=== PATIENT | male | born 1965 | race Caucasian/White ===

== ENCOUNTER 2017-06-29 05:27 | Inpatient (IN) | payer OTHER ==
[2017-06-29] MEDS ORDERED: Sodium Chloride 0.9% 1,000 ML IV ONE (06:07)
[2017-06-29] MEDS ORDERED: HYDROmorphone 1 mg/mL 1mL Syr IVP STA (06:08)
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
[2017-06-29] MEDS ORDERED: HYDROmorphone 1 mg/mL 1mL Syr ONE (06:23)
[2017-06-29 06:30] LABS: % BASOPHILS 0.5 % (0.0-2.0); % EOSINOPHILS 4.4 % (0.0-5.0); % LYMPHOCYTES 40.2 % (20.0-50.0); % MONOCYTES 10.6 % (2.0-10.0); % NEUTROPHILS 44.3 % (40.0-80.0); EOSINOPHILE ABSOLUTE 0.2 Th/cmm (0.1-0.4); HEMOGLOBIN 15.4 gm/dL (12-16); LYMPHOCYTE ABSOLUTE 1.6 Th/cmm (1.5-3.0); MEAN CELL VOLUME 81.4 fl (80-99); MEAN CORPUSCULAR HEMOGLOBIN 26.6 pg (26.0-30.0); MEAN CORPUSCULAR HGB CONC 32.7 pg (28.0-36.0); MEAN PLATELET VOLUME 7.2 fl; MONOCYTE ABSOLUTE 0.4 Th/cmm (0.3-1.0); NEUTROPHILE ABSOLUTE 1.9 Th/cmm (1.8-8.0); RED CELL DISTRIBUTION WIDTH 14.3 % (11.5-20.0)
[2017-06-29 06:31] LABS: HEMATOCRIT 47.2 % (41.0-60); PLATELET COUNT 239 Th/cmm (150-400); WHITE BLOOD COUNT 4.1 Th/cmm (4.8-10.8)
[2017-06-29 06:57] LABS: INR 0.91 (0.5-1.4); PROTHROMBIN TIME (TEST) 9.5 SECONDS (9.5-11.5)
[2017-06-29 07:02] LABS: ALB/GLOB RATIO 1.4 (1.0-1.8); ALBUMIN 4.8 gm/dL (4.2-5.5); ALKALINE PHOSPHATASE 77 U/L (34-104); ANION GAP 12.6 (7.0-16.0); BILIRUBIN,TOTAL 0.2 mg/dL (0.3-1.0); BUN - UREA NITROGEN 6 mg/dL (7-25); CALCIUM SERUM 9.8 mg/dL (8.6-10.3); CARBON DIOXIDE 30.6 mEq/L (21.0-31.0); CHLORIDE 99 mEq/L (98-107); CREATININE - SERUM 0.8 mg/dL (0.7-1.3); GFR AFRICAN-AMERICAN > 60.0 ml/min (>90); GFR NON AFRICAN-AMERICAN > 60.0 ml/min; GLUCOSE 125 mg/dL (70-105); LIPASE 63 U/L (11-82); POTASSIUM SERUM 4.2 mEq/L (3.5-5.1); SGOT 45 U/L (13-39); SGPT/ALT 39 U/L (7-52); SODIUM SERUM 138 mEq/L (136-145); TOTAL PROTEIN,SERUM 8.2 gm/dL (6.0-8.3)
[2017-06-29] MEDS ORDERED: Multivitamin Inj 10 ML, Thiamine HCL 100 MG, Magnesium Sulfate 2 GM, Folic Acid 1 MG in... IV ONE (07:59)
[2017-06-29] MEDS ORDERED: Multivitamin Inj 10 mL Vial IV ONE (08:23)
[2017-06-29] MEDS ORDERED: Thiamine 100 mg/mL 2mL Vial ONE (08:24)
[2017-06-29] MEDS ORDERED: Magnesium Sulfate 1 gm/2 mL 2mL Vial IV ONE (08:25)
[2017-06-29] MEDS: Morphine Sulfate 4 mg/mL 1mL Syr IVP PRN ×5 (10:05→23:18)
[2017-06-29] MEDS: 0.9% NS w/20 mEq KCL 1,000 ML IV SCH ×2 (11:35→23:19)
[2017-06-29] MEDS: Pantoprazole 80 MG in Sodium Chloride 0.9% 100 ML IV SCH ×2 (11:39→21:50)
--- NOTE | 2017-06-29 11:49 | Diagnostic Imaging Report ---
Exam: Ultrasound examination the abdomen HISTORY abdominal pain Findings: Real-time ultrasound summation abdomen performed multiple planes. The study extremely limited due to large amount of intra-abdominal bowel gas The visualized liver parenchyma is intact. The gallbladder free of calculi. The common bile duct measures 3 mm. The displacement seen. There is no evidence of obstructive uropathy or nephrolithiasis Right kidney measures 10.4 x 5.8 x 7 cm diameter Left kidney measures 10.5 x 6.4 x 5.3 cm diameter. The spleen is normal. No free fluid is noted. IMPRESSION: Extremely limited examination the abdomen due to large amount intra-abdominal bowel gas. Unremarkable examination of the abdomen.
[2017-06-30] MEDS: Morphine Sulfate 4 mg/mL 1mL Syr IVP PRN ×5 (05:51→23:02)
[2017-06-30] MEDS: Pantoprazole 80 MG in Sodium Chloride 0.9% 100 ML IV SCH ×2 (05:52→16:02)
[2017-06-30] MEDS: 0.9% NS w/20 mEq KCL 1,000 ML IV SCH ×2 (05:53→17:37)
[2017-06-30 06:11] LABS: % BASOPHILS 0.7 % (0.0-2.0); % EOSINOPHILS 3.2 % (0.0-5.0); % LYMPHOCYTES 31.8 % (20.0-50.0); % MONOCYTES 10.5 % (2.0-10.0); % NEUTROPHILS 53.8 % (40.0-80.0); EOSINOPHILE ABSOLUTE 0.2 Th/cmm (0.1-0.4); LYMPHOCYTE ABSOLUTE 1.6 Th/cmm (1.5-3.0); MEAN CELL VOLUME 80.6 fl (80-99); MEAN CORPUSCULAR HEMOGLOBIN 27.1 pg (26.0-30.0); MEAN CORPUSCULAR HGB CONC 33.6 pg (28.0-36.0); MEAN PLATELET VOLUME 7.9 fl; MONOCYTE ABSOLUTE 0.5 Th/cmm (0.3-1.0); NEUTROPHILE ABSOLUTE 2.7 Th/cmm (1.8-8.0); PLATELET COUNT 195 Th/cmm (150-400); RED BLOOD COUNT 5.17 Mil/cmm (4.30-5.70); RED CELL DISTRIBUTION WIDTH 14.2 % (11.5-20.0)
[2017-06-30 06:15] LABS: ANION GAP 10.6 (7.0-16.0); BUN - UREA NITROGEN 9 mg/dL (7-25); CARBON DIOXIDE 28.3 mEq/L (21.0-31.0); CHLORIDE 97 mEq/L (98-107); CREATININE - SERUM 0.8 mg/dL (0.7-1.3); GFR AFRICAN-AMERICAN > 60.0 ml/min (>90); GFR NON AFRICAN-AMERICAN > 60.0 ml/min; GLUCOSE 94 mg/dL (70-105); POTASSIUM SERUM 3.9 mEq/L (3.5-5.1); SODIUM SERUM 132 mEq/L (136-145)
[2017-06-30 06:23] LABS: HEMATOCRIT 41.7 % (41.0-60)
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
--- NOTE | 2017-06-30 13:52 | History & Physical ---
ADMIT DATE: 06/29/2017 CHIEF COMPLAINT: Abdominal pain and vomiting. HISTORY OF PRESENT ILLNESS: This is a 51-year-old male with underlying history of alcohol dependency who stated that he was drinking heavily for the past few days, started experiencing persisting vomiting, abdominal pain, so came to the Emergency Room. The patient ____ for treatment. Upon reviewing the record, noted that the patient was hospitalized about 2 weeks ago and had workup for pancreatitis and subsequently went home. The patient said that he had an episode of vomiting some blood-tinged, denies any melena. No hematochezia. Denies any chest pain, shortness of breath, dizziness, or palpitations. The patient says he feels very anxious. No other complaints. PAST MEDICAL HISTORY: Denies. PAST SURGICAL HISTORY: Denies. FAMILY HISTORY: Positive for stroke in father and hypertension. SOCIAL HISTORY: Lives at home. The patient ____. Denies any ____, any tobacco or street drug use. CURRENT MEDICATIONS: His chart reviewed. PHYSICAL EXAMINATION: VITAL SIGNS: Temperature 97.8, pulse 97, respirations ____, blood pressure 162/92, and oxygen ____ room air. HEENT: Unremarkable. HEART: S1, S2 normal. LUNGS: ____. ABDOMEN: Soft, nontender, no guarding ____. NEUROLOGIC: Awake, feels anxious. Grossly nonfocal exam. LABORATORY DATA: ____. DIAGNOSES: 1. Abdominal pain. 2. Alcohol dependency. 3. Anxiety. PLAN: Admitted to tele unit. The patient was initially kept n.p.o., then started on clear liquids. GI was consulted. Protonix drip was started. IV fluid has been given. Ativan, morphine and Zofran ordered. Psych consult. ____. Advised to ____ AA meeting. We will monitor patient's lab and vitals. Followup on the GI recommendations. Patient's condition, plan of care discussed with nursing staff. The patient was given banana bag in the Emergency Room. JOB# [id number]
--- NOTE | 2017-06-30 16:55 | General Progress Note ---
Subjective - Review of Systems Service Date: 06/30/17 Subjective: Patient doing better no reported concern HH stable Objective - Results Result Diagrams: 06/30/17 04:55 06/30/17 04:55 Recent Labs: Laboratory Last Values WBC 5.0 Th/cmm (4.8-10.8) D 06/30/17 04:55 RBC 5.17 Mil/cmm (4.30-5.70) 06/30/17 04:55 Hgb 14.0 gm/dL (12-16) 06/30/17 04:55 Hct 41.7 % (41.0-60) D 06/30/17 04:55 MCV 80.6 fl (80-99) 06/30/17 04:55 MCH 27.1 pg (26.0-30.0) 06/30/17 04:55 MCHC Differential 33.6 pg (28.0-36.0) 06/30/17 04:55 RDW 14.2 % (11.5-20.0) 06/30/17 04:55 Plt Count 195 Th/cmm (150-400) 06/30/17 04:55 MPV 7.9 fl 06/30/17 04:55 Neutrophils % 53.8 % (40.0-80.0) 06/30/17 04:55 Lymphocytes % 31.8 % (20.0-50.0) 06/30/17 04:55 Monocytes % 10.5 % (2.0-10.0) H 06/30/17 04:55 Eosinophils % 3.2 % (0.0-5.0) 06/30/17 04:55 Basophils % 0.7 % (0.0-2.0) 06/30/17 04:55 PT 9.5 SECONDS (9.5-11.5) 06/29/17 06:20 INR 0.91 (0.5-1.4) 06/29/17 06:20 Sodium 132 mEq/L (136-145) L 06/30/17 04:55 Potassium 3.9 mEq/L (3.5-5.1) 06/30/17 04:55 Chloride 97 mEq/L (98-107) L 06/30/17 04:55 Carbon Dioxide 28.3 mEq/L (21.0-31.0) 06/30/17 04:55 Anion Gap 10.6 (7.0-16.0) 06/30/17 04:55 BUN 9 mg/dL (7-25) 06/30/17 04:55 Creatinine 0.8 mg/dL (0.7-1.3) 06/30/17 04:55 Est GFR ( Amer) > 60.0 ml/min (>90) 06/30/17 04:55 Est GFR (Non-Af Amer) > 60.0 ml/min 06/30/17 04:55 BUN/Creatinine Ratio 11.3 06/30/17 04:55 Glucose 94 mg/dL (70-105) 06/30/17 04:55 Calcium 9.0 mg/dL (8.6-10.3) 06/30/17 04:55 Total Bilirubin 0.2 mg/dL (0.3-1.0) L 06/29/17 06:20 AST 45 U/L (13-39) H 06/29/17 06:20 ALT 39 U/L (7-52) 06/29/17 06:20 Alkaline Phosphatase 77 U/L (34-104) 06/29/17 06:20 Total Protein 8.2 gm/dL (6.0-8.3) 06/29/17 06:20 Albumin 4.8 gm/dL (4.2-5.5) 06/29/17 06:20 Globulin 3.4 gm/dL 06/29/17 06:20 Albumin/Globulin Ratio 1.4 (1.0-1.8) 06/29/17 06:20 Amylase 44 U/L (29-103) 06/29/17 06:20 Lipase 63 U/L (11-82) 06/29/17 06:20 Ethyl Alcohol 309 mg/dL (0-10) H 06/29/17 06:20 - Physical Exam Vitals and I&O: Vital Signs Temp 98.1 F 06/30/17 13:53 Pulse 65 06/30/17 13:53 Resp 16 06/30/17 13:53 BP 144/89 06/30/17 13:53 Pulse Ox 96 06/30/17 13:53 Intake & Output 06/29/17 06/30/17 06/30/17 18:59 06:59 18:59 Intake Total 100 2097.000 100 Output Total 1200 3 Balance -1100 2094.000 100 Weight (lbs) 94.801 kg 96.978 kg Intake: Intake, IV Amount 1837.000 100 0.9% NS w/20 mEq KCL 1, 1656.667 000 ml @ 100 mls/hr IV . Q10H [facility] Rx#:[id number] Pantoprazole 80 mg In 180.333 100 Sodium Chloride 0.9% 100 ml @ 10 mls/hr IV Q10H [facility] Rx#:[id number] Oral 100 260 Output: Urine 1100 3 Emesis 100 Other: Stool Characteristics Liquid Liquid Active Medications: Current Medications Potassium Chloride/Sodium Chloride (0.9% Ns W/20 Meq Kcl) 1,000 mls @ 100 mls/ hr IV .Q10H [facility] Stop: 08/28/17 09:36 Last Admin: 06/30/17 05:53 Dose: 100 mls/hr Pantoprazole Sodium 80 mg/ (Sodium Chloride) 100 mls @ 10 mls/hr IV Q10H [facility] Stop: 08/28/17 09:36 Last Admin: 06/30/17 16:02 Dose: 10 mls/hr Lorazepam (Ativan) 0.5 mg IVP Q6HR PRN; Protocol PRN Reason: Anxiety Stop: 08/28/17 16:18 Last Admin: 06/30/17 12:05 Dose: 0.5 mg Morphine Sulfate (Morphine) 4 mg IVP Q3H PRN PRN Reason: Pain (Moderate TO severe) Stop: 08/28/17 09:36 Last Admin: 06/30/17 14:58 Dose: 4 mg Ondansetron HCl (Zofran) 4 mg IV Q6H PRN PRN Reason: Nausea / Vomiting Stop: 08/28/17 09:36 Last Admin: 06/30/17 12:06 Dose: 4 mg Cardiovascular: Regular rate Lungs: Clear to auscultation Abdomen: Soft Assessment/Plan - Assessment Assessment: ABD PAIN Alcohol abuse ? Hemetemesis - Plan Plan: GI input noted HH stable will advance diet EGD per GI Symptomatic treatment
[2017-07-01] MEDS: Pantoprazole 80 MG in Sodium Chloride 0.9% 100 ML IV SCH ×3 (01:37→22:54)
[2017-07-01] MEDS: Morphine Sulfate 4 mg/mL 1mL Syr IVP PRN ×5 (04:52→21:53)
[2017-07-01 06:39] LABS: ALB/GLOB RATIO 1.5 (1.0-1.8); ALBUMIN 4.1 gm/dL (4.2-5.5); BILIRUBIN,DIRECT 0.15 mg/dL (0.0-0.2); BILIRUBIN,TOTAL 0.6 mg/dL (0.3-1.0); TOTAL PROTEIN,SERUM 6.8 gm/dL (6.0-8.3)
--- NOTE | 2017-07-01 08:51 | GI Progress Note ---
Subjective - Review of Systems Subjective: NO EVENTS Objective - Results Result Diagrams: 06/30/17 04:55 06/30/17 04:55 Recent Labs: Laboratory Last Values WBC 5.0 Th/cmm (4.8-10.8) D 06/30/17 04:55 RBC 5.17 Mil/cmm (4.30-5.70) 06/30/17 04:55 Hgb 14.0 gm/dL (12-16) 06/30/17 04:55 Hct 41.7 % (41.0-60) D 06/30/17 04:55 MCV 80.6 fl (80-99) 06/30/17 04:55 MCH 27.1 pg (26.0-30.0) 06/30/17 04:55 MCHC Differential 33.6 pg (28.0-36.0) 06/30/17 04:55 RDW 14.2 % (11.5-20.0) 06/30/17 04:55 Plt Count 195 Th/cmm (150-400) 06/30/17 04:55 MPV 7.9 fl 06/30/17 04:55 Neutrophils % 53.8 % (40.0-80.0) 06/30/17 04:55 Lymphocytes % 31.8 % (20.0-50.0) 06/30/17 04:55 Monocytes % 10.5 % (2.0-10.0) H 06/30/17 04:55 Eosinophils % 3.2 % (0.0-5.0) 06/30/17 04:55 Basophils % 0.7 % (0.0-2.0) 06/30/17 04:55 PT 9.5 SECONDS (9.5-11.5) 06/29/17 06:20 INR 0.91 (0.5-1.4) 06/29/17 06:20 Sodium 132 mEq/L (136-145) L 06/30/17 04:55 Potassium 3.9 mEq/L (3.5-5.1) 06/30/17 04:55 Chloride 97 mEq/L (98-107) L 06/30/17 04:55 Carbon Dioxide 28.3 mEq/L (21.0-31.0) 06/30/17 04:55 Anion Gap 10.6 (7.0-16.0) 06/30/17 04:55 BUN 9 mg/dL (7-25) 06/30/17 04:55 Creatinine 0.8 mg/dL (0.7-1.3) 06/30/17 04:55 Est GFR ( Amer) > 60.0 ml/min (>90) 06/30/17 04:55 Est GFR (Non-Af Amer) > 60.0 ml/min 06/30/17 04:55 BUN/Creatinine Ratio 11.3 06/30/17 04:55 Glucose 94 mg/dL (70-105) 06/30/17 04:55 Calcium 9.0 mg/dL (8.6-10.3) 06/30/17 04:55 Total Bilirubin 0.6 mg/dL (0.3-1.0) 07/01/17 04:54 Direct Bilirubin 0.15 mg/dL (0.0-0.2) 07/01/17 04:54 AST 33 U/L (13-39) 07/01/17 04:54 ALT 32 U/L (7-52) 07/01/17 04:54 Alkaline Phosphatase 49 U/L (34-104) 07/01/17 04:54 Total Protein 6.8 gm/dL (6.0-8.3) 07/01/17 04:54 Albumin 4.1 gm/dL (4.2-5.5) L 07/01/17 04:54 Globulin 2.7 gm/dL 07/01/17 04:54 Albumin/Globulin Ratio 1.5 (1.0-1.8) 07/01/17 04:54 Amylase 44 U/L (29-103) 06/29/17 06:20 Lipase 63 U/L (11-82) 06/29/17 06:20 Ethyl Alcohol 309 mg/dL (0-10) H 06/29/17 06:20 - Physical Exam Vitals and I&O: Vital Signs Temp 97.5 F 07/01/17 04:00 Pulse 75 07/01/17 04:00 Resp 18 07/01/17 04:00 BP 147/93 07/01/17 04:00 Pulse Ox 93 07/01/17 04:00 Intake & Output 06/30/17 07/01/17 07/01/17 18:59 06:59 18:59 Intake Total 1900 350 Output Total 800 2000 Balance 1100 -1650 Weight (lbs) 96.615 kg 97.568 kg Intake: Intake, IV Amount 1100 100 0.9% NS w/20 mEq KCL 1, 1000 000 ml @ 100 mls/hr IV . Q10H [facility] Rx#:[id number] Pantoprazole 80 mg In 100 100 Sodium Chloride 0.9% 100 ml @ 10 mls/hr IV Q10H [facility] Rx#:[id number] Oral 800 250 Output: Urine 800 2000 Other: # Bowel Movements 0 Active Medications: Current Medications Potassium Chloride/Sodium Chloride (0.9% Ns W/20 Meq Kcl) 1,000 mls @ 100 mls/ hr IV .Q10H [facility] Stop: 08/28/17 09:36 Last Admin: 06/30/17 17:37 Dose: 100 mls/hr Pantoprazole Sodium 80 mg/ (Sodium Chloride) 100 mls @ 10 mls/hr IV Q10H [facility] Stop: 08/28/17 09:36 Last Admin: 07/01/17 01:37 Dose: 10 mls/hr Lorazepam (Ativan) 0.5 mg IVP Q6HR PRN; Protocol PRN Reason: Anxiety Stop: 08/28/17 16:18 Last Admin: 07/01/17 08:15 Dose: 0.5 mg Morphine Sulfate (Morphine) 4 mg IVP Q3H PRN PRN Reason: Pain (Moderate TO severe) Stop: 08/28/17 09:36 Last Admin: 07/01/17 04:52 Dose: 4 mg Ondansetron HCl (Zofran) 4 mg IV Q6H PRN PRN Reason: Nausea / Vomiting Stop: 08/28/17 09:36 Last Admin: 06/30/17 12:06 Dose: 4 mg Cardiovascular: Regular rate Lungs: Clear to auscultation Abdomen: Soft Assessment/Plan - Assessment Assessment: 51 YO MALE WITH UGI BLEEDING NO ACITVE HGB NORMAL LFTS NORMAL 1.EGD 2.CONT SUPP CARE 3.PROTONIX 4.AVOID ETOH AND JOIN AA
[2017-07-01] MEDS: 0.9% NS w/20 mEq KCL 1,000 ML IV SCH (09:46)
--- NOTE | 2017-07-01 20:12 | General Progress Note ---
Subjective - Review of Systems Service Date: 07/01/17 Subjective: Patient doing better denied any complaints Objective - Results Result Diagrams: 06/30/17 04:55 06/30/17 04:55 Recent Labs: Laboratory Last Values WBC 5.0 Th/cmm (4.8-10.8) D 06/30/17 04:55 RBC 5.17 Mil/cmm (4.30-5.70) 06/30/17 04:55 Hgb 14.0 gm/dL (12-16) 06/30/17 04:55 Hct 41.7 % (41.0-60) D 06/30/17 04:55 MCV 80.6 fl (80-99) 06/30/17 04:55 MCH 27.1 pg (26.0-30.0) 06/30/17 04:55 MCHC Differential 33.6 pg (28.0-36.0) 06/30/17 04:55 RDW 14.2 % (11.5-20.0) 06/30/17 04:55 Plt Count 195 Th/cmm (150-400) 06/30/17 04:55 MPV 7.9 fl 06/30/17 04:55 Neutrophils % 53.8 % (40.0-80.0) 06/30/17 04:55 Lymphocytes % 31.8 % (20.0-50.0) 06/30/17 04:55 Monocytes % 10.5 % (2.0-10.0) H 06/30/17 04:55 Eosinophils % 3.2 % (0.0-5.0) 06/30/17 04:55 Basophils % 0.7 % (0.0-2.0) 06/30/17 04:55 PT 9.5 SECONDS (9.5-11.5) 06/29/17 06:20 INR 0.91 (0.5-1.4) 06/29/17 06:20 Sodium 132 mEq/L (136-145) L 06/30/17 04:55 Potassium 3.9 mEq/L (3.5-5.1) 06/30/17 04:55 Chloride 97 mEq/L (98-107) L 06/30/17 04:55 Carbon Dioxide 28.3 mEq/L (21.0-31.0) 06/30/17 04:55 Anion Gap 10.6 (7.0-16.0) 06/30/17 04:55 BUN 9 mg/dL (7-25) 06/30/17 04:55 Creatinine 0.8 mg/dL (0.7-1.3) 06/30/17 04:55 Est GFR ( Amer) > 60.0 ml/min (>90) 06/30/17 04:55 Est GFR (Non-Af Amer) > 60.0 ml/min 06/30/17 04:55 BUN/Creatinine Ratio 11.3 06/30/17 04:55 Glucose 94 mg/dL (70-105) 06/30/17 04:55 Calcium 9.0 mg/dL (8.6-10.3) 06/30/17 04:55 Total Bilirubin 0.6 mg/dL (0.3-1.0) 07/01/17 04:54 Direct Bilirubin 0.15 mg/dL (0.0-0.2) 07/01/17 04:54 AST 33 U/L (13-39) 07/01/17 04:54 ALT 32 U/L (7-52) 07/01/17 04:54 Alkaline Phosphatase 49 U/L (34-104) 07/01/17 04:54 Total Protein 6.8 gm/dL (6.0-8.3) 07/01/17 04:54 Albumin 4.1 gm/dL (4.2-5.5) L 07/01/17 04:54 Globulin 2.7 gm/dL 07/01/17 04:54 Albumin/Globulin Ratio 1.5 (1.0-1.8) 07/01/17 04:54 Amylase 44 U/L (29-103) 06/29/17 06:20 Lipase 63 U/L (11-82) 06/29/17 06:20 Ethyl Alcohol 309 mg/dL (0-10) H 06/29/17 06:20 - Physical Exam Vitals and I&O: Vital Signs Temp 97.9 F 07/01/17 17:28 Pulse 79 07/01/17 17:28 Resp 18 07/01/17 17:28 BP 149/99 07/01/17 17:28 Pulse Ox 99 07/01/17 17:28 Intake & Output 07/01/17 07/01/17 07/02/17 06:59 18:59 06:59 Intake Total 1350 300 Output Total 2000 700 Balance -650 -400 Weight (lbs) 97.568 kg 97.522 kg Intake: Intake, IV Amount 1100 100 0.9% NS w/20 mEq KCL 1, 1000 000 ml @ 100 mls/hr IV . Q10H [facility] Rx#:[id number] Pantoprazole 80 mg In 100 100 Sodium Chloride 0.9% 100 ml @ 10 mls/hr IV Q10H [facility] Rx#:[id number] Oral 250 200 Output: Urine 1999 700 Other: # Bowel Movements 0 Active Medications: Current Medications Pantoprazole Sodium 80 mg/ (Sodium Chloride) 100 mls @ 10 mls/hr IV Q10H [facility] Stop: 08/28/17 09:36 Last Admin: 07/01/17 15:09 Dose: 10 mls/hr Sodium Chloride (Nacl 0.9%) 1,000 mls @ 70 mls/hr IV .[id number] [facility] Stop: 08/30/17 20:14 Lorazepam (Ativan) 0.5 mg IVP Q6HR PRN; Protocol PRN Reason: Anxiety Stop: 08/28/17 16:18 Last Admin: 07/01/17 15:14 Dose: 0.5 mg Morphine Sulfate (Morphine) 4 mg IVP Q3H PRN PRN Reason: Pain (Moderate TO severe) Stop: 08/28/17 09:36 Last Admin: 07/01/17 18:21 Dose: 4 mg Ondansetron HCl (Zofran) 4 mg IV Q6H PRN PRN Reason: Nausea / Vomiting Stop: 08/28/17 09:36 Last Admin: 06/30/17 12:06 Dose: 4 mg Cardiovascular: Regular rate Lungs: Clear to auscultation Abdomen: Soft Assessment/Plan - Assessment Assessment: ABD PAIN Better Alcohol abuse ? Hemetemesis - Plan Plan: Tolerated Full liquid well EGD in am Decrease IV Fluids Protonix drip Morphine zofran ativan Plan of care discussed with the patient
[2017-07-01] MEDS: Sodium Chloride 0.9% 1,000 ML IV SCH (20:30)
[2017-07-02 05:07] LABS: MEAN CORPUSCULAR HEMOGLOBIN 27.3 pg (26.0-30.0)
[2017-07-02] MEDS: Morphine Sulfate 4 mg/mL 1mL Syr IVP PRN ×3 (05:14→20:15)
[2017-07-02 05:27] LABS: % BASOPHILS 0.4 % (0.0-2.0); % EOSINOPHILS 5.4 % (0.0-5.0); % LYMPHOCYTES 26.1 % (20.0-50.0); % MONOCYTES 8.4 % (2.0-10.0); % NEUTROPHILS 59.7 % (40.0-80.0); EOSINOPHILE ABSOLUTE 0.2 Th/cmm (0.1-0.4); HEMATOCRIT 41.9 % (41.0-60); HEMOGLOBIN 14.1 gm/dL (12-16); LYMPHOCYTE ABSOLUTE 1.1 Th/cmm (1.5-3.0); MEAN CELL VOLUME 81.1 fl (80-99); MEAN CORPUSCULAR HGB CONC 33.7 pg (28.0-36.0); MEAN PLATELET VOLUME 7.6 fl; MONOCYTE ABSOLUTE 0.4 Th/cmm (0.3-1.0); NEUTROPHILE ABSOLUTE 2.7 Th/cmm (1.8-8.0); PLATELET COUNT 168 Th/cmm (150-400); RED BLOOD COUNT 5.17 Mil/cmm (4.30-5.70); RED CELL DISTRIBUTION WIDTH 13.6 % (11.5-20.0); WHITE BLOOD COUNT 4.4 Th/cmm (4.8-10.8)
[2017-07-02 05:31] LABS: ANION GAP 12.6 (7.0-16.0); BUN - UREA NITROGEN 10 mg/dL (7-25); CALCIUM SERUM 9.1 mg/dL (8.6-10.3); CARBON DIOXIDE 24.2 mEq/L (21.0-31.0); CHLORIDE 102 mEq/L (98-107); CREATININE - SERUM 0.8 mg/dL (0.7-1.3); GFR AFRICAN-AMERICAN > 60.0 ml/min (>90); GFR NON AFRICAN-AMERICAN > 60.0 ml/min; GLUCOSE 89 mg/dL (70-105); POTASSIUM SERUM 3.8 mEq/L (3.5-5.1); SODIUM SERUM 135 mEq/L (136-145)
[2017-07-02 05:32] LABS: INR 0.95 (0.5-1.4); PROTHROMBIN TIME (TEST) 9.9 SECONDS (9.5-11.5)
--- NOTE | 2017-07-02 08:51 | Diagnostic Imaging Report ---
CHEST X-RAY: AP view INDICATION: pain, preop GERD. COMPARISON: 05/31/2017 FINDINGS: Low lung volumes are noted. No focal consolidation or effusions. Borderline prominent heart is noted. The osseous structures demonstrate degenerative changes. IMPRESSION: Low lung volumes. No focal consolidation identified.
[2017-07-02 09:57] VITALS: BP 153/103
[2017-07-02] MEDS: Sodium Chloride 0.9% 1,000 ML IV SCH (11:04)
--- NOTE | 2017-07-02 12:15 | GI Progress Note ---
Subjective - Review of Systems Subjective: NO EVENTS NO GI BLEEDING WANTS TO EAT Objective - Results Result Diagrams: 07/02/17 04:16 07/02/17 04:16 Recent Labs: Laboratory Last Values WBC 4.4 Th/cmm (4.8-10.8) L 07/02/17 04:16 RBC 5.17 Mil/cmm (4.30-5.70) 07/02/17 04:16 Hgb 14.1 gm/dL (12-16) 07/02/17 04:16 Hct 41.9 % (41.0-60) 07/02/17 04:16 MCV 81.1 fl (80-99) 07/02/17 04:16 MCH 27.3 pg (26.0-30.0) 07/02/17 04:16 MCHC Differential 33.7 pg (28.0-36.0) 07/02/17 04:16 RDW 13.6 % (11.5-20.0) 07/02/17 04:16 Plt Count 168 Th/cmm (150-400) 07/02/17 04:16 MPV 7.6 fl 07/02/17 04:16 Neutrophils % 59.7 % (40.0-80.0) 07/02/17 04:16 Lymphocytes % 26.1 % (20.0-50.0) 07/02/17 04:16 Monocytes % 8.4 % (2.0-10.0) 07/02/17 04:16 Eosinophils % 5.4 % (0.0-5.0) H 07/02/17 04:16 Basophils % 0.4 % (0.0-2.0) 07/02/17 04:16 PT 9.9 SECONDS (9.5-11.5) 07/02/17 04:16 INR 0.95 (0.5-1.4) 07/02/17 04:16 Sodium 135 mEq/L (136-145) L 07/02/17 04:16 Potassium 3.8 mEq/L (3.5-5.1) 07/02/17 04:16 Chloride 102 mEq/L (98-107) 07/02/17 04:16 Carbon Dioxide 24.2 mEq/L (21.0-31.0) 07/02/17 04:16 Anion Gap 12.6 (7.0-16.0) 07/02/17 04:16 BUN 10 mg/dL (7-25) 07/02/17 04:16 Creatinine 0.8 mg/dL (0.7-1.3) 07/02/17 04:16 Est GFR ( Amer) > 60.0 ml/min (>90) 07/02/17 04:16 Est GFR (Non-Af Amer) > 60.0 ml/min 07/02/17 04:16 BUN/Creatinine Ratio 12.5 07/02/17 04:16 Glucose 89 mg/dL (70-105) 07/02/17 04:16 POC Glucose 88 MG/DL (70 - 105) 07/02/17 06:57 Calcium 9.1 mg/dL (8.6-10.3) 07/02/17 04:16 Total Bilirubin 0.6 mg/dL (0.3-1.0) 07/01/17 04:54 Direct Bilirubin 0.15 mg/dL (0.0-0.2) 07/01/17 04:54 AST 33 U/L (13-39) 07/01/17 04:54 ALT 32 U/L (7-52) 07/01/17 04:54 Alkaline Phosphatase 49 U/L (34-104) 07/01/17 04:54 Total Protein 6.8 gm/dL (6.0-8.3) 07/01/17 04:54 Albumin 4.1 gm/dL (4.2-5.5) L 07/01/17 04:54 Globulin 2.7 gm/dL 07/01/17 04:54 Albumin/Globulin Ratio 1.5 (1.0-1.8) 07/01/17 04:54 Amylase 44 U/L (29-103) 06/29/17 06:20 Lipase 63 U/L (11-82) 06/29/17 06:20 Ethyl Alcohol 309 mg/dL (0-10) H 06/29/17 06:20 - Physical Exam Vitals and I&O: Vital Signs Temp 98.4 F 07/02/17 11:48 Pulse 67 07/02/17 11:48 Resp 18 07/02/17 11:48 BP 119/71 07/02/17 11:48 Pulse Ox 97 07/02/17 11:48 Intake & Output 07/01/17 07/02/17 07/02/17 18:59 06:59 18:59 Intake Total 300 427.5 1000 Output Total 700 Balance -400 427.5 1000 Weight (lbs) 97.522 kg 95.254 kg Intake: Intake, IV Amount 100 77.5 1000 Pantoprazole 80 mg In 100 77.5 Sodium Chloride 0.9% 100 ml @ 10 mls/hr IV Q10H [facility] Rx#:[id number] Sodium Chloride 0.9% 1, 1000 000 ml @ 70 mls/hr IV . [id number] [facility] Rx#:[id number] Oral 200 350 Output: Urine 700 Other: # Voids 2 # Bowel Movements 0 0 Active Medications: Current Medications Pantoprazole Sodium 80 mg/ (Sodium Chloride) 100 mls @ 10 mls/hr IV Q10H [facility] Stop: 08/28/17 09:36 Last Admin: 07/01/17 22:54 Dose: 10 mls/hr Sodium Chloride (Nacl 0.9%) 1,000 mls @ 70 mls/hr IV .[id number] [facility] Stop: 08/30/17 20:14 Last Admin: 07/02/17 11:04 Dose: 70 mls/hr Lorazepam (Ativan) 0.5 mg IVP Q6HR PRN; Protocol PRN Reason: Anxiety Stop: 08/28/17 16:18 Last Admin: 07/02/17 08:19 Dose: 0.5 mg Morphine Sulfate (Morphine) 4 mg IVP Q3H PRN PRN Reason: Pain (Moderate TO severe) Stop: 08/28/17 09:36 Last Admin: 07/02/17 05:14 Dose: 4 mg Ondansetron HCl (Zofran) 4 mg IV Q6H PRN PRN Reason: Nausea / Vomiting Stop: 08/28/17 09:36 Last Admin: 06/30/17 12:06 Dose: 4 mg Cardiovascular: Regular rate Lungs: Clear to auscultation Abdomen: Soft Assessment/Plan - Assessment Assessment: 51 YO MALE WITH UGI BLEEDING NO ACTIVE BLEEDING HGB NORMAL LFTS NORMAL 1.EGD WHEN OR IS FIXED 2.CONT SUPP CARE 3.PROTONIX 4.AVOID ETOH AND JOIN AA
[2017-07-02] MEDS: Pantoprazole 80 MG in Sodium Chloride 0.9% 100 ML IV SCH (14:26)
--- NOTE | 2017-07-02 21:20 | General Progress Note ---
Subjective - Review of Systems Service Date: 07/02/17 Subjective: Patient seen and examined no new concern unable to have EGD done this am due to OR issue Objective - Results Result Diagrams: 07/02/17 04:16 07/02/17 04:16 Recent Labs: Laboratory Last Values WBC 4.4 Th/cmm (4.8-10.8) L 07/02/17 04:16 RBC 5.17 Mil/cmm (4.30-5.70) 07/02/17 04:16 Hgb 14.1 gm/dL (12-16) 07/02/17 04:16 Hct 41.9 % (41.0-60) 07/02/17 04:16 MCV 81.1 fl (80-99) 07/02/17 04:16 MCH 27.3 pg (26.0-30.0) 07/02/17 04:16 MCHC Differential 33.7 pg (28.0-36.0) 07/02/17 04:16 RDW 13.6 % (11.5-20.0) 07/02/17 04:16 Plt Count 168 Th/cmm (150-400) 07/02/17 04:16 MPV 7.6 fl 07/02/17 04:16 Neutrophils % 59.7 % (40.0-80.0) 07/02/17 04:16 Lymphocytes % 26.1 % (20.0-50.0) 07/02/17 04:16 Monocytes % 8.4 % (2.0-10.0) 07/02/17 04:16 Eosinophils % 5.4 % (0.0-5.0) H 07/02/17 04:16 Basophils % 0.4 % (0.0-2.0) 07/02/17 04:16 PT 9.9 SECONDS (9.5-11.5) 07/02/17 04:16 INR 0.95 (0.5-1.4) 07/02/17 04:16 Sodium 135 mEq/L (136-145) L 07/02/17 04:16 Potassium 3.8 mEq/L (3.5-5.1) 07/02/17 04:16 Chloride 102 mEq/L (98-107) 07/02/17 04:16 Carbon Dioxide 24.2 mEq/L (21.0-31.0) 07/02/17 04:16 Anion Gap 12.6 (7.0-16.0) 07/02/17 04:16 BUN 10 mg/dL (7-25) 07/02/17 04:16 Creatinine 0.8 mg/dL (0.7-1.3) 07/02/17 04:16 Est GFR ( Amer) > 60.0 ml/min (>90) 07/02/17 04:16 Est GFR (Non-Af Amer) > 60.0 ml/min 07/02/17 04:16 BUN/Creatinine Ratio 12.5 07/02/17 04:16 Glucose 89 mg/dL (70-105) 07/02/17 04:16 POC Glucose 88 MG/DL (70 - 105) 07/02/17 06:57 Calcium 9.1 mg/dL (8.6-10.3) 07/02/17 04:16 Total Bilirubin 0.6 mg/dL (0.3-1.0) 07/01/17 04:54 Direct Bilirubin 0.15 mg/dL (0.0-0.2) 07/01/17 04:54 AST 33 U/L (13-39) 07/01/17 04:54 ALT 32 U/L (7-52) 07/01/17 04:54 Alkaline Phosphatase 49 U/L (34-104) 07/01/17 04:54 Total Protein 6.8 gm/dL (6.0-8.3) 07/01/17 04:54 Albumin 4.1 gm/dL (4.2-5.5) L 07/01/17 04:54 Globulin 2.7 gm/dL 07/01/17 04:54 Albumin/Globulin Ratio 1.5 (1.0-1.8) 07/01/17 04:54 Amylase 44 U/L (29-103) 06/29/17 06:20 Lipase 63 U/L (11-82) 06/29/17 06:20 Ethyl Alcohol 309 mg/dL (0-10) H 06/29/17 06:20 - Physical Exam Vitals and I&O: Vital Signs Temp 98.2 F 07/02/17 15:47 Pulse 60 07/02/17 15:47 Resp 17 07/02/17 16:00 BP 120/65 07/02/17 15:47 Pulse Ox 97 07/02/17 15:47 Intake & Output 07/02/17 07/02/17 07/03/17 06:59 18:59 06:59 Intake Total 427.5 1500 Output Total 1050 Balance 427.5 450 Weight (lbs) 95.254 kg 94.256 kg Intake: Intake, IV Amount 77.5 1100 Pantoprazole 80 mg In 77.5 100 Sodium Chloride 0.9% 100 ml @ 10 mls/hr IV Q10H [facility] Rx#:[id number] Sodium Chloride 0.9% 1, 1000 000 ml @ 70 mls/hr IV . [id number] [facility] Rx#:[id number] Oral 350 400 Output: Urine 1050 Other: # Voids 2 # Bowel Movements 0 0 Active Medications: Current Medications Pantoprazole Sodium 80 mg/ (Sodium Chloride) 100 mls @ 10 mls/hr IV Q10H [facility] Stop: 08/28/17 09:36 Last Admin: 07/02/17 14:26 Dose: 10 mls/hr Sodium Chloride (Nacl 0.9%) 1,000 mls @ 70 mls/hr IV .[id number] [facility] Stop: 08/30/17 20:14 Last Admin: 07/02/17 11:04 Dose: 70 mls/hr Lorazepam (Ativan) 0.5 mg IVP Q6HR PRN; Protocol PRN Reason: Anxiety Stop: 08/28/17 16:18 Last Admin: 07/02/17 15:16 Dose: 0.5 mg Morphine Sulfate (Morphine) 4 mg IVP Q3H PRN PRN Reason: Pain (Moderate TO severe) Stop: 08/28/17 09:36 Last Admin: 07/02/17 20:15 Dose: 4 mg Ondansetron HCl (Zofran) 4 mg IV Q6H PRN PRN Reason: Nausea / Vomiting Stop: 08/28/17 09:36 Last Admin: 06/30/17 12:06 Dose: 4 mg Cardiovascular: Regular rate Lungs: Clear to auscultation Abdomen: Soft, no Tender Assessment/Plan - Assessment Assessment: ABD PAIN Better Alcohol abuse ? Hemetemesis - Plan Plan: Case discussed with GI Plan is to have EGD in am Continue current treatment PPI Advised to avoid alcohol AA meeting advised
[2017-07-03] MEDS: Sodium Chloride 0.9% 1,000 ML IV SCH (05:25)
[2017-07-03] MEDS: Pantoprazole 80 MG in Sodium Chloride 0.9% 100 ML IV SCH (05:48)
[2017-07-03] MEDS: Morphine Sulfate 4 mg/mL 1mL Syr IVP PRN (08:16)
[2017-07-03] MEDS ORDERED: fentaNYL Citrate 100 mcg/2mL Vial ONE ×2 (15:40)
--- NOTE | 2017-07-03 18:39 | Operative Report ---
DATE OF SURGERY: 07/03/2017 PROCEDURE PERFORMED: EGD with biopsy. INDICATION FOR PROCEDURE: GI bleeding. CONSENT: Informed consent was obtained from the patient after planning benefits and risks including infection, bleeding, perforation, . ANESTHESIA USED: Propofol given by anesthesiologist. ANESTHESIOLOGIST: Dr. Andres PREOPERATIVE DIAGNOSIS: Upper GI bleed. POSTOPERATIVE DIAGNOSIS: Gastritis. DESCRIPTION OF PROCEDURE: The patient was placed in left lateral position. Upper Olympus endoscope was introduced through the mouth and advanced to the esophagus, which was intubated under direct visualization. Esophageal mucosa was examined on the way down to essentially normal. GE junction was identified at 40 cm. Scope was advanced through the GE junction to the stomach where the gastric mucosa was examined and it showed gastritis. There was erythema involving the body and antrum. It was in a linear fashion extending from the pylorus toward the body. Scope was advanced through the pylorus to the duodenum where the bulb and second part were examined and they were both normal. Scope was then withdrawn to the stomach, retroflexed to examine the cardia and fundus, it was normal, it did not show any hiatal hernia. Scope was then straightened and biopsies were taken from the antrum for CLOtest. Scope was then withdrawn while examining the gastric and esophageal mucosa a second time. The patient tolerated the procedure well. There was no immediate postoperative complication. RECOMMENDATIONS: 1. Follow up biopsy results. 2. Treat H. pylori if positive. 3. PPI. 4. Avoid alcohol. 5. Follow up as an outpatient. Thank you, Dr. Sparks for allowing me to participate in the care of the patient. If you have any further questions, please let me know. JOB# [id number]
--- NOTE | 2017-07-03 21:37 | General Progress Note ---
Subjective - Review of Systems Service Date: 07/03/17 Subjective: Patient seen and examined s/p EGD this am s/o Gastritis no other significant finding per GI reported patient feels better denied any complaints Objective - Results Result Diagrams: 07/02/17 04:16 07/02/17 04:16 Recent Labs: Laboratory Last Values WBC 4.4 Th/cmm (4.8-10.8) L 07/02/17 04:16 RBC 5.17 Mil/cmm (4.30-5.70) 07/02/17 04:16 Hgb 14.1 gm/dL (12-16) 07/02/17 04:16 Hct 41.9 % (41.0-60) 07/02/17 04:16 MCV 81.1 fl (80-99) 07/02/17 04:16 MCH 27.3 pg (26.0-30.0) 07/02/17 04:16 MCHC Differential 33.7 pg (28.0-36.0) 07/02/17 04:16 RDW 13.6 % (11.5-20.0) 07/02/17 04:16 Plt Count 168 Th/cmm (150-400) 07/02/17 04:16 MPV 7.6 fl 07/02/17 04:16 Neutrophils % 59.7 % (40.0-80.0) 07/02/17 04:16 Lymphocytes % 26.1 % (20.0-50.0) 07/02/17 04:16 Monocytes % 8.4 % (2.0-10.0) 07/02/17 04:16 Eosinophils % 5.4 % (0.0-5.0) H 07/02/17 04:16 Basophils % 0.4 % (0.0-2.0) 07/02/17 04:16 PT 9.9 SECONDS (9.5-11.5) 07/02/17 04:16 INR 0.95 (0.5-1.4) 07/02/17 04:16 Sodium 135 mEq/L (136-145) L 07/02/17 04:16 Potassium 3.8 mEq/L (3.5-5.1) 07/02/17 04:16 Chloride 102 mEq/L (98-107) 07/02/17 04:16 Carbon Dioxide 24.2 mEq/L (21.0-31.0) 07/02/17 04:16 Anion Gap 12.6 (7.0-16.0) 07/02/17 04:16 BUN 10 mg/dL (7-25) 07/02/17 04:16 Creatinine 0.8 mg/dL (0.7-1.3) 07/02/17 04:16 Est GFR ( Amer) > 60.0 ml/min (>90) 07/02/17 04:16 Est GFR (Non-Af Amer) > 60.0 ml/min 07/02/17 04:16 BUN/Creatinine Ratio 12.5 07/02/17 04:16 Glucose 89 mg/dL (70-105) 07/02/17 04:16 POC Glucose 88 MG/DL (70 - 105) 07/02/17 06:57 Calcium 9.1 mg/dL (8.6-10.3) 07/02/17 04:16 Total Bilirubin 0.6 mg/dL (0.3-1.0) 07/01/17 04:54 Direct Bilirubin 0.15 mg/dL (0.0-0.2) 07/01/17 04:54 AST 33 U/L (13-39) 07/01/17 04:54 ALT 32 U/L (7-52) 07/01/17 04:54 Alkaline Phosphatase 49 U/L (34-104) 07/01/17 04:54 Total Protein 6.8 gm/dL (6.0-8.3) 07/01/17 04:54 Albumin 4.1 gm/dL (4.2-5.5) L 07/01/17 04:54 Globulin 2.7 gm/dL 07/01/17 04:54 Albumin/Globulin Ratio 1.5 (1.0-1.8) 07/01/17 04:54 Amylase 44 U/L (29-103) 06/29/17 06:20 Lipase 63 U/L (11-82) 06/29/17 06:20 Ethyl Alcohol 309 mg/dL (0-10) H 06/29/17 06:20 - Physical Exam Vitals and I&O: Vital Signs Temp 98.2 F 07/03/17 18:00 Pulse 77 07/03/17 18:00 Resp 18 07/03/17 18:00 BP 130/85 07/03/17 18:00 Pulse Ox 98 07/03/17 18:00 Intake & Output 07/03/17 07/03/17 07/04/17 06:59 18:59 06:59 Intake Total 1100 Balance 1100 Weight (lbs) 93.894 kg Intake: Intake, IV Amount 1100 Pantoprazole 80 mg In 100 Sodium Chloride 0.9% 100 ml @ 10 mls/hr IV Q10H [facility] Rx#:[id number] Sodium Chloride 0.9% 1, 1000 000 ml @ 70 mls/hr IV . [id number] [facility] Rx#:[id number] Other: # Voids 2 Cardiovascular: Regular rate Lungs: Clear to auscultation Abdomen: Soft, no Tender Assessment/Plan - Assessment Assessment: ABD PAIN Better Alcohol abuse Acute gastritis - Plan Plan: DC home Highly advised to avoid alcohol and to attend AA meeting Out patient psych follow for alcohol rehab program advised PPI prescribed DC plan discussed with nursing staff
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
== END 2017-07-03 18:15 | disposition home or self-care (01) | DRG 241 ==
LOC: ER 05:27 → TELE 08:20 → MSI 07-02 17:59
PROVIDERS: ADMIT Family Medicine; ATTEND Family Medicine
PROC: 0DB68ZX Excision of Stomach, Via Natural or Artificial Opening Endoscopic, Diagnostic (ICD-10-PCS; principal; 2017-07-03)
DX: K29.01 Acute gastritis with bleeding (principal); K74.60 Unspecified cirrhosis of liver; K70.10 Alcoholic hepatitis without ascites; F10.20 Alcohol dependence, uncomplicated; Y90.8 Blood alcohol level of 240 mg/100 ml or more; R19.7 Diarrhea, unspecified; F41.9 Anxiety disorder, unspecified; F32.9 Major depressive disorder, single episode, unspecified; I10 Essential (primary) hypertension; Z83.3 Family history of diabetes mellitus; Z82.49 Family history of ischemic heart disease and other diseases of the circulatory system; Z82.3 Family history of stroke
CPT/HCPCS: 36415-UA; 71010-TC; 76700-TC; 80048-TC; 80053-TC; 80076-TC; 80320-TC; 82150-TC; 82948-90; 83690-TC; 85025-TC; 85610-TC; 87338-TC; 93005; 96375; C9113; J1170; J1885; J2060; J2405; J3010; J3411; J3475; J3480; J7030; X6226; X6598

== ENCOUNTER 2017-10-18 16:45 | Emergency (ER) | payer OTHER ==
[2017-10-18] MEDS ORDERED: Sodium Chloride 0.9% 1,000 ML IV ONE (16:52)
--- NOTE | 2017-10-18 16:59 | ED Physician Chart ---
ED Chief Complaint/HPI - Patient Information Date Seen:: 10/18/17 Time Seen:: 16:45 Chief Complaint:: abdominal pain History of Present Illness:: Patient's had epigastric and right upper quadrant pain last 4-5 days. He's vomited at least 10-15 times a day. No diarrhea. Patient's been drinking 30 beers a day for the last few weeks. Prior to that he had 1 year of sobriety. Allergies:: Allergies Allergy/AdvReac Type Severity Reaction Status Date / Time No Known Allergies Allergy Verified 05/31/17 00:13 Historian:: Patient Review:: Nurse's Note Reviewed ED Review of Systems - Review of Systems General/Constitutional: No fever, No chills, No weight loss, No weakness, No diaphoresis, No edema, No loss of appetite Skin: No skin lesions, No rash, No bruising Head: No headache, No light-headedness Eyes: No loss of vision, No pain, No diplopia ENT: No earache, No nasal drainage, No sore throat, No tinnitus Neck: No neck pain, No swelling, No thyromegaly, No stiffness, No mass noted Cardio Vascular: No chest pain, No palpitations, No PND, No orthopnea, No edema Pulmonary: No SOB, No cough, No sputum, No wheezing GI: Nausea, Vomiting, No diarrhea, Pain, No melena, No hematochezia, No constipation, No hematemesis G/U: No dysuria, No frequency, No hematuria Musculoskeletal: No bone or joint pain, No back pain, No muscle pain Endocrine: No polyuria, No polydipsia Psychiatric: No prior psych history, No depression, No anxiety, No suicidal ideation Hematopoietic: No bruising, No lymphadenopathy Allergic/Immuno: No urticaria, No angioedema Neurological: No syncope, No focal symptoms, No weakness, No paresthesia, No headache, No seizure, No dizziness, No confusion, No vertigo Family Medical History - Family Member Mother History Unknown: Yes Ethnicity: Living Status: Still Living Father Ethnicity: Living Status: Hx Family Hypertension: Yes Hx Family Stroke: Yes ED Physical Exam - Physical Examination General/Constitutional: Well-developed, well-nourished, Alert Other Gen/Cons comments:: In mild distress Head: Atraumatic Eyes: Lids, conjuctiva normal, PERRL Skin: Nl inspection, No rash ENMT: External ears, nose nl, TM canals nl, Nasal exam nl, Lips, teeth, gums nl Neck: No nuchal rigidity Respiratory: Nl effort/Exclusion, Clear to Auscultation, No Wheeze/Rhonchi/Rales Cardio Vascular: RRR, No murmur, gallop, rubs GI: No organomegaly, No hernia, Normal BS's, Nondistended, No mass/bruits, No McBurney tenderness Other GI comments:: Epigastric and right upper quadrant tenderness : No CVA tenderness Extremities: Normal digits & nails Neuro/Psych: No focal deficits Misc: Normal back, No paraspinal tenderness ED Labs/Radiology/EKG Results - Lab Results Results: Laboratory Results - last 24 hr 10/18/17 10/18/17 17:10 17:10 WBC 4.0 L RBC 5.06 Hgb 13.4 Hct 40.6 L MCV 80.2 MCH 26.4 MCHC Differential 32.9 RDW 13.4 Plt Count 183 MPV 7.4 Neutrophils % 48.2 Lymphocytes % 38.0 Monocytes % 8.5 Eosinophils % 4.1 Basophils % 1.2 Sodium 136 Potassium 3.8 Chloride 102 Carbon Dioxide 25.2 Anion Gap 12.6 BUN 6 L Creatinine 0.7 Est GFR ( Amer) > 60.0 Est GFR (Non-Af Amer) > 60.0 BUN/Creatinine Ratio 8.6 Glucose 114 H Calcium 9.3 Magnesium 2.1 Ethyl Alcohol 373 H Laboratory Results - last 24 hr 10/18/17 10/18/17 17:10 17:10 WBC 4.0 L RBC 5.06 Hgb 13.4 Hct 40.6 L MCV 80.2 MCH 26.4 MCHC Differential 32.9 RDW 13.4 Plt Count 183 MPV 7.4 Neutrophils % 48.2 Lymphocytes % 38.0 Monocytes % 8.5 Eosinophils % 4.1 Basophils % 1.2 Sodium 136 Potassium 3.8 Chloride 102 Carbon Dioxide 25.2 Anion Gap 12.6 BUN 6 L Creatinine 0.7 Est GFR ( Amer) > 60.0 Est GFR (Non-Af Amer) > 60.0 BUN/Creatinine Ratio 8.6 Glucose 114 H Calcium 9.3 Magnesium 2.1 Ethyl Alcohol 373 H ED Assessment - Assessment General Assessment: Patient ambulated out of the emergency department normally with his sister will provide transportation. ED Septic Shock - . Is Septic Shock (SBP<90, OR Lactate>4 mmol\L) present?: No ED Reassessment (Disposition) - Reassessment Reassessment Condition:: Improved - Diagnosis Diagnosis:: Acute alcohol intoxication; acute and chronic alcohol abuse - Patient Disposition Discharge/Transfer:: Home Condition at Disposition:: Stable, Improved ED Discharge Plan - Patient Disposition Admit/Discharge/Transfer: PT DISCHARGED HOME Condition at Disposition: Improved Instructions: Alcohol Intoxication, [id number]
[2017-10-18 17:17] LABS: % BASOPHILS 1.2 % (0.0-2.0); % EOSINOPHILS 4.1 % (0.0-5.0); % MONOCYTES 8.5 % (2.0-10.0); % NEUTROPHILS 48.2 % (40.0-80.0); EOSINOPHILE ABSOLUTE 0.2 Th/cmm (0.1-0.4); HEMATOCRIT 40.6 % (41.0-60); HEMOGLOBIN 13.4 gm/dL (12-16); LYMPHOCYTE ABSOLUTE 1.5 Th/cmm (1.5-3.0); MEAN CELL VOLUME 80.2 fl (80-99); MEAN CORPUSCULAR HEMOGLOBIN 26.4 pg (26.0-30.0); MEAN CORPUSCULAR HGB CONC 32.9 pg (28.0-36.0); MEAN PLATELET VOLUME 7.4 fl; MONOCYTE ABSOLUTE 0.3 Th/cmm (0.3-1.0); PLATELET COUNT 183 Th/cmm (150-400); RED BLOOD COUNT 5.06 Mil/cmm (4.30-5.70); RED CELL DISTRIBUTION WIDTH 13.4 % (11.5-20.0)
[2017-10-18 17:36] LABS: ANION GAP 12.6 (7.0-16.0); BUN - UREA NITROGEN 6 mg/dL (7-25); CALCIUM SERUM 9.3 mg/dL (8.6-10.3); CARBON DIOXIDE 25.2 mEq/L (21.0-31.0); CHLORIDE 102 mEq/L (98-107); CREATININE - SERUM 0.7 mg/dL (0.7-1.3); GFR AFRICAN-AMERICAN > 60.0 ml/min (>90); GFR NON AFRICAN-AMERICAN > 60.0 ml/min; GLUCOSE 114 mg/dL (70-105); MAGNESIUM 2.1 mg/dL (1.9-2.7); POTASSIUM SERUM 3.8 mEq/L (3.5-5.1); SODIUM SERUM 136 mEq/L (136-145)
== END 2017-10-18 20:20 | disposition home or self-care (01) ==
LOC: ER 16:45
DX: F10.129 Alcohol abuse with intoxication, unspecified (principal)
CPT/HCPCS: 99284; 96374; 96375; 36415; 85025; 80320; 83690; 83735; 80048; C9113; J2405; J7030; Z7502

== ENCOUNTER 2017-11-22 22:55 | Emergency (ER) | payer OTHER ==
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
[2017-11-22] MEDS ORDERED: Multivitamin Inj 10 ML, Thiamine HCL 100 MG, Magnesium Sulfate 2 GM, Folic Acid 1 MG in... IV ONE (23:06)
[2017-11-22 23:22] LABS: % BASOPHILS 0.6 % (0.0-2.0); % EOSINOPHILS 5.7 % (0.0-5.0); % LYMPHOCYTES 35.4 % (20.0-50.0); % MONOCYTES 11.2 % (2.0-10.0); % NEUTROPHILS 47.1 % (40.0-80.0); EOSINOPHILE ABSOLUTE 0.3 Th/cmm (0.1-0.4); HEMOGLOBIN 13.2 gm/dL (12-16); LYMPHOCYTE ABSOLUTE 1.6 Th/cmm (1.5-3.0); MEAN CELL VOLUME 80.8 fl (80-99); MEAN CORPUSCULAR HEMOGLOBIN 27.3 pg (26.0-30.0); MEAN CORPUSCULAR HGB CONC 33.7 pg (28.0-36.0); MEAN PLATELET VOLUME 7.7 fl; MONOCYTE ABSOLUTE 0.5 Th/cmm (0.3-1.0); NEUTROPHILE ABSOLUTE 2.1 Th/cmm (1.8-8.0); PLATELET COUNT 190 Th/cmm (150-400); RED BLOOD COUNT 4.83 Mil/cmm (4.30-5.70); RED CELL DISTRIBUTION WIDTH 15.7 % (11.5-20.0); WHITE BLOOD COUNT 4.5 Th/cmm (4.8-10.8)
[2017-11-22] MEDS ORDERED: Maalox 30 mL Cup PO ONE (23:23)
[2017-11-22 23:38] LABS: ANION GAP 11.7 (7.0-16.0); BUN - UREA NITROGEN 6 mg/dL (7-25); CALCIUM SERUM 9.2 mg/dL (8.6-10.3); CARBON DIOXIDE 24.7 mEq/L (21.0-31.0); CHLORIDE 109 mEq/L (98-107); CREATININE - SERUM 0.7 mg/dL (0.7-1.3); GFR AFRICAN-AMERICAN > 60.0 ml/min (>90); GFR NON AFRICAN-AMERICAN > 60.0 ml/min; GLUCOSE 137 mg/dL (70-105); LIPASE 85 U/L (11-82); MAGNESIUM 2.2 mg/dL (1.9-2.7); POTASSIUM SERUM 3.4 mEq/L (3.5-5.1); SODIUM SERUM 142 mEq/L (136-145)
== END 2017-11-23 00:10 | disposition left against medical advice (07) ==
LOC: ER 22:55
DX: F10.129 Alcohol abuse with intoxication, unspecified (principal)
CPT/HCPCS: 36415-UA; 80048-TC; 80320-TC; 83690-TC; 83735-TC; 85025-TC; Z7502